=== PATIENT | female | born 1985 | race Caucasian/White ===

== ENCOUNTER 2017-07-05 18:43 | Emergency (ER) | payer MEDICAID ==
[~2017-07-05] VITALS: Ht 180.3 cm; Wt 128.9 kg
[~2017-07-05 18:43] MED LIST: CYCL-1 PO; CYCL-394 PO; FURO-150 PO; NAPR-56 PO
[2017-07-05] MEDS ORDERED: BENZ-16 PO (20:14)
[2017-07-05] MEDS ORDERED: CETI1TAB PO (20:14)
[2017-07-05 20:31] VITALS: BP 144/85
== END 2017-07-05 20:33 | disposition home or self-care (01) ==
LOC: ER 18:45
DX: B34.9 Viral infection, unspecified (principal); G89.29 Other chronic pain; M54.9 Dorsalgia, unspecified; Z98.890 Other specified postprocedural states; Z79.899 Other long term (current) drug therapy
CPT/HCPCS: 99283

== ENCOUNTER 2018-11-18 19:56 | Emergency (ER) | payer MEDICAID ==
[~2018-11-18] VITALS: Ht 182.9 cm; Wt 135.5 kg
[~2018-11-18 19:56] MED LIST changes: +BENZ-16 PO; +CETI1TAB PO
[2018-11-18 20:05] VITALS: BP 183/107
[2018-11-18] MEDS ORDERED: LIDO20SO16 PO (21:30)
== END 2018-11-18 21:42 | disposition home or self-care (01) ==
LOC: ER 19:57
DX: J02.9 Acute pharyngitis, unspecified (principal); G89.29 Other chronic pain; Z98.890 Other specified postprocedural states; Z79.899 Other long term (current) drug therapy
CPT/HCPCS: 99283

== ENCOUNTER 2020-05-22 21:29 | Emergency (ER) | payer MEDICAID ==
[~2020-05-22] VITALS: Ht 177.8 cm; Wt 139.2 kg
[~2020-05-22 21:29] MED LIST changes: +LIDO20SO16 PO; +LIDOcaine 1% W/epiNEPHrine 1:200,000 10ml vial ONE
[2020-05-22 21:40] VITALS: BP 156/105
[2020-05-22] MEDS ORDERED: clindamycin 150mg capsule PO ONE (23:05)
[2020-05-22] MEDS ORDERED: acetaminophen 325mg tablet PO ONE (23:05)
[2020-05-22] MEDS ORDERED: ondansetron 4mg rapidly disintigrating tab PO ONE (23:05)
[2020-05-22] MEDS ORDERED: CLIN300C54 PO (23:08)
== END 2020-05-22 23:43 | disposition home or self-care (01) ==
LOC: ER 21:31
DX: L02.13 Carbuncle of neck (principal); R51.9 Headache, unspecified; G89.29 Other chronic pain; Z98.890 Other specified postprocedural states; Z79.2 Long term (current) use of antibiotics; Z79.899 Other long term (current) drug therapy
CPT/HCPCS: 10060; 10061; 99284

== ENCOUNTER 2024-08-31 14:23 | Emergency (ER) | payer MEDICAID ==
[~2024-08-31] VITALS: Ht 180.3 cm; Wt 104.7 kg
[~2024-08-31 14:23] MED LIST changes: -LIDOcaine 1% W/epiNEPHrine 1:200,000 10ml vial ONE
[2024-08-31 14:35] VITALS: TEMP 97.7
[2024-08-31 15:02] LABS: URINE HCG NEGATIVE (NEG)
[2024-08-31 15:15] LABS: BASOPHILS # (AUTO) 0.1 X10'3 (0-0.2); BASOPHILS % (AUTO) 1.1 % (0-1); EOSINOPHILS # (AUTO) 0.1 X10'3 (0-0.9); EOSINOPHILS % (AUTO) 0.9 % (0-6); HEMATOCRIT 39.4 % (35.0-45.0); HEMOGLOBIN 13.6 g/dl (12.0-16.0); LYMPHOCYTES # (AUTO) 2.6 X10'3 (1.1-4.8); LYMPHOCYTES % (AUTO) 32.5 % (21-51); MEAN CORPUSCULAR HEMOGLOBIN 29.7 PG (27.0-31.0); MEAN CORPUSCULAR HGB CONC 34.5 g/dL (33.0-36.5); MEAN CORPUSCULAR VOLUME 86.1 FL (78-98); MEAN PLATELET VOLUME 8.3 FL (7.4-10.4); MONOCYTES # (AUTO) 0.6 X10'3 (0-0.9); NEUTROPHILS # (AUTO) 4.7 X10'3 (1.8-7.7); NEUTROPHILS % (AUTO) 58.5 % (42-75); PLATELET COUNT 277 X10'3 (140-440); RED BLOOD COUNT 4.57 X10'6 (4.20-5.60); RED CELL DISTRIBUTION WIDTH 13.7 % (11.5-14.5)
[2024-08-31 15:32] LABS: ALANINE AMINOTRANSFERASE 16 U/L (12-78); ALBUMIN 3.7 G/DL (3.4-5.0); ALKALINE PHOSPHATASE 94 IU/L (46-116); ANION GAP 7 (8-16); ASPARTATE AMINO TRANSFERASE 17 U/L (10-37); BILIRUBIN,TOTAL 0.3 MG/DL (0.1-1.0); BLOOD UREA NITROGEN 23 MG/DL (7-18); BUN/CREATININE RATIO 29.9 (10.0-20.0); CALCIUM 8.6 MG/DL (8.5-10.1); CHLORIDE 106 MMOL/L (99-107); CREATININE 0.77 MG/DL (0.40-0.90); GLUCOSE 92 MG/DL (70-104); LIPASE 56 U/L (16-77); POTASSIUM 4.1 MMOL/L (3.5-5.1); SODIUM 140 MMOL/L (135-145); TOTAL CARBON DIOXIDE 26.9 MMOL/L (24-32); TOTAL PROTEIN 7.3 G/DL (6.4-8.2); eCRCL 112 ML/MIN; eGFR 84 ML/MIN
[2024-08-31] MEDS: mag hydrox/Alum hydrox/simeth 30ml oral suspension PO ONE (16:06)
[2024-08-31] MEDS: LIDOcaine 2% Viscous 15ml cup MM PRN (16:06)
[2024-08-31] MEDS ORDERED: OMEP40CA21 PO (16:28)
[2024-08-31 16:43] VITALS: BP 130/91; PULSE 80; RESP 14; O2SAT 98
== END 2024-08-31 16:49 | disposition home or self-care (01) ==
LOC: ER 14:23
DX: K29.00 Acute gastritis without bleeding (principal); Z98.890 Other specified postprocedural states
CPT/HCPCS: 36415; 76700; 80053; 81025; 83690; 85025; 99284

== ENCOUNTER 2025-04-18 14:51 | Emergency (ER) | payer MEDICAID ==
[~2025-04-18] VITALS: Ht 180.3 cm; Wt 120.1 kg
[2025-04-18 14:59] VITALS: BP 161/99; PULSE 86; TEMP 97.3; O2SAT 98
[2025-04-18 17:12] VITALS: RESP 16
[2025-04-18] MEDS: ketorolac trometh 15mg/ml vial 15 MG/ML ML IM ONE (17:12)
[2025-04-18 17:45] LABS: LEUKOCYTE ESTERASE ,URINE TRACE (Neg); NITRITES, URINE NEGATIVE (Neg); OCCULT BLOOD,URINE NEGATIVE (Neg); URINE HCG NEGATIVE (NEG)
[2025-04-18 17:47] LABS: UA COLLECTION TYPE CLN CATCH MIDSTREAM
[2025-04-18 17:52] LABS: SQUAMOUS EPITHELIAL CELL,UR FEW /LPF (FEW)
[2025-04-18] MEDS ORDERED: CEPH500C81 PO (17:59)
--- NOTE | 2025-04-18 18:00 | Physician Documentation ---
History of Present Illness ~ Chief Complaint: Headache Stated Complaint: MULTIPLE MED COMPLAINTS Time Seen by MD: 16:16 Primary Medical Doctor: alla amaya Source: patient Mode of Arrival: POV Exam Limitations: no limitations HPI This with a three day history of headache. She states that the pain is around her temporal area and was unable to describe the pain. She states history of migraines. She has some sensitivity to light. No blurred vision, double vision. No photophobia. Has been taking Tylenol, ibuprofen and Excedrin with minimal relief. She also is concerned that she might have a bladder infection. She states she has been having to void frequently. Has some hesitancy. Denies dysuria. No fevers or chills. No neck or back pain. Nausea, vomiting. No abdominal pain. Was asked, but otherwise denies review of systems. Medication Reconciliation Allergies: Coded Allergies: No Known Allergies (Unverified , 04/18/25) Scheduled Benzonatate (Tessalon Perle), 1 CAP PO Nightly Cephalexin (Cephalexin), 1 CAP PO Q12H Cetirizine Hcl/Pseudoephedrine (Zyrtec-D Tablet), 1 TAB PO DAILY Cyclobenzaprine HCl (Cyclobenzaprine HCl), 10 MG PO BID Furosemide (Lasix), 1 TABLET PO DAILY Lidocaine Hcl (Xylocaine Viscous), 5 ML PO Q2H PRN SORE THROAT Naproxen (Naproxen), 500 MG PO Q12H Scheduled PRN Cyclobenzaprine* (Cyclobenzaprine*), 1 TABLET PO Q8H PRN for muscle spasms Past Medical History Past Medical History: Chronic Back Pain Past Surgical History: Smoking Status: Never smoker Alcohol Use: None Drug Use: none Lives with: Spouse Lives In: Home Review of Systems ROS Review of systems negative except specifically documented in HPI. Physical Exam Vital Signs: RN Vital Signs have been reviewed: Yes, Temperature: 97.3, Source: Temporal, Heart Rate: 86, Respiratory Rate: 16, BP: 161/99, Pulse Oximetry: 98, Weight: 120.100 Oxygen Flow Rate: 0 Pulse Oximetry Reflects: adequate oxygenation Physical Exam General: Awake, alert, oriented. No apparent distress HEENT: Normocephalic. Trachea midline. Pupils equal and reactive to light. EOMI. No nystagmus. Respiratory: Lungs are clear to auscultation bilaterally. No respiratory distress. Chest: Normal shape and size. No accessory muscle use. Cardiovascular: Regular rate and rhythm. S1-S2. No murmur, gallop, rub. Gastrointestinal: Abdomen is soft. Nontender to palpation. Bowel sounds present. Neurologic: Alert and oriented x4. Nonfocal Psychiatric: Normal mood and affect. Skin: Normal color. Warm and dry. Progress Results/Orders Results/Orders Orders - MENA LEBRON NP Cult Urine + [address] (04/18/25 17:53) Completed Orders - MENA LEBRON NP Ketorolac Trometh 15mg/Ml Vial (Toradol (04/18/25 16:40) Hcg, Ur Ql (04/18/25 17:23) Ua W/Microscopic, Cult If Ind (04/18/25 17:35) Medications Received in ER Medications (Trade) Dose Ordered Sig/Jackelin Route PRN Reason Start Time Stop Time Status Last Admin Dose Admin (Toradol injection) 15 mg ONCE ONCE IM 04/18/25 16:40 04/18/25 16:41 DC 04/18/25 17:12 15 MG Vital Signs 04/18/25 04/18/25 14:59 17:12 Temp 97.3 Pulse 86 Resp 16 16 B/P (MAP) 161/99 Pulse Ox 98 O2 Flow Rate 0 Laboratory Tests Test 04/18/25 17:35 Urine Specimen Description Cln catch midstream Urine Color Yellow Urine Clarity Clear Urine pH 7.0 Urine Specific Cadet 1.015 Urine Protein Negative Urine Glucose (UA) Negative Urine Ketones Negative Urine Occult Blood Negative Urine Nitrite Negative Urine Bilirubin Negative Urine Urobilinogen 0.2 Urine Leukocyte Esterase Trace H Urine RBC 0-2 Urine WBC 5-10 H Urine Squamous Epithelial Cells Few Urine Bacteria Few Urine Culture Indicated Indicated Volume Urine Centrifuged 10 ml Urine HCG, Qualitative Negative Urine Comment Microbiology Date/Time Source Procedure Growth Status 04/18/25 17:53 Urine Clean Catch Midstream Urine Culture - Preliminary Culture received. Resulted Medical Decision Making Findings Presents with headache. Presentation of tension type headaches. She was given Toradol and reported improvement in her symptoms. She also complained of urinary symptoms. Her urine had leukocyte esterase, WBCs and few bacteria. She is therefore being treated for a urinary tract infection as well. Encouraged to stay well hydrated. Signs and symptoms were reviewed. Differential Dx:Considerations: Include: CERDA-Cluster, CERDA-Migraine, CERDA- Hypertensive, CERDA-Muscular contraction, CERDA-Post lumbar puncture, Carbon monoxide toxicity, Close head injuyr, CVA, Mass lesion, Meningitis, Sinusitis Departure Time of Disposition: 17:57 Disposition: 01 HOME / SELF CARE / HOMELESS Impression: Primary Impression: UTI (urinary tract infection) Qualified Codes: N30.00 - Acute cystitis without hematuria Additional Impression: Tension headache Condition: Stable Discharge Instructions: Urinary Tract Infection, Adult Referrals: NO PRIMARY CARE PROVIDER (PCP) Prescriptions Cephalexin (Cephalexin) 500 Mg Capsule 1 CAP PO Q12H for 10 Days, #20 CAP Prov: MENA LEBRON NP 04/18/25 Education Educated: Patient Educated regarding: diagnosis, treatment, need for follow up Signature Scribe Signature: No scribe Attestation: The note accurately reflects work and decisions made by me.Mena Lebron - FERNY 04/18/25 21:36 This note was created with the assistance of voice recognition software whereby errors in grammar, syntax, and/or spelling may have occurred despite active proofreading efforts by the author. Please do not hesitate to contact the provider for clarification or for questions regarding the content of this document. MENA LEBRON NP Apr 18, 2025 18:00
== END 2025-04-18 18:05 | disposition home or self-care (01) ==
LOC: ER 14:52
DX: N39.0 Urinary tract infection, site not specified (principal); G44.209 Tension-type headache, unspecified, not intractable
CPT/HCPCS: 81001; 81025; 87088; 96372; 99283; J1885

== ENCOUNTER 2025-05-02 12:42 | Emergency (ER) | payer MEDICAID ==
[~2025-05-02] VITALS: Ht 180.3 cm; Wt 117.8 kg
[2025-05-02 12:46] VITALS: BP 158/86; PULSE 83; RESP 16; O2SAT 97
--- NOTE | 2025-05-02 13:24 | RADIOLOGY REPORT ---
CLINICAL INDICATION: KNEE PAIN TECHNIQUE: DI KNEE, COMP 4 VW MIN Comparison: None FINDINGS/IMPRESSION: : There is no evidence of acute fracture or dislocation. Mild medial compartment osteophyte formation. Minor medial compartment joint space narrowing. This is likely degenerative. No joint effusion.
--- NOTE | 2025-05-02 15:14 | Physician Documentation ---
History of Present Illness ~ Chief Complaint: Knee Pain Stated Complaint: KNEE PAIN Time Seen by MD: 14:07 Primary Medical Doctor: alla amaya [facility] Patient is a 39-year-old female that presents to the emergency department for a new knee brace as hers has fallen apart. Patient reports that she was seen here over a week and a half ago evaluated at that time for left-sided knee pain no fracture was noted on imaging patient has a little bit of residual swelling in her left knee and would like to continue using her knee brace but needs a knee brace. Other symptoms reported at this time. Tetanus witin 5 years: Yes Medication Reconciliation Allergies: Coded Allergies: No Known Allergies (Unverified , 04/18/25) Scheduled Benzonatate (Tessalon Perle), 1 CAP PO Nightly Cetirizine Hcl/Pseudoephedrine (Zyrtec-D Tablet), 1 TAB PO DAILY Cyclobenzaprine HCl (Cyclobenzaprine HCl), 10 MG PO BID Furosemide (Lasix), 1 TABLET PO DAILY Lidocaine Hcl (Xylocaine Viscous), 5 ML PO Q2H PRN SORE THROAT Naproxen (Naproxen), 500 MG PO Q12H Scheduled PRN Cyclobenzaprine* (Cyclobenzaprine*), 1 TABLET PO Q8H PRN for muscle spasms Discontinued Medications Cephalexin (Cephalexin), 1 CAP PO Q12H Discontinued Reason: Auto Discontinued Past Medical History Past Medical History: Chronic Back Pain Past Surgical History: Alcohol Use: None Drug Use: none Lives with: Spouse Lives In: Home Review of Systems ROS As stated above in the HPI, otherwise all systems are reviewed and negative. Physical Exam Vital Signs: Temperature: 98.0, Source: Temporal, Heart Rate: 83, Respiratory Rate: 16, BP: 158/86, Pulse Oximetry: 97, Weight: 117.800 Oxygen Flow Rate: 0 Physical Exam VITALS: Reviewed and as above. GENERAL: Alert, no apparent distress. HEENT: Normocephalic, atraumatic, PERRL, EOMI, dry mucosa, no erythema RESPIRATORY: Lungs clear, normal breath sounds, no respiratory distress. CHEST: No accessory muscle use, no retractions CV: Regular rate, rhythm, no edema, no murmur, No: JVD GI: Soft, non-tender, bowels sounds present, no rebound, guarding, or rigidity BACK: No CVA tenderness, or swelling MUSCULOSKELETAL No deformities, mild edema noted to the left knee during examination, reduced range of motion and tenderness of the left knee during examination. SKIN: Warm and dry, no rash NEURO: Oriented x4, No motor or sensory deficit PSYCH: Normal mood and affect, no agitation Progress Results/Orders Results/Orders Vital Signs 05/02/25 12:46 Temp 98.0 Pulse 83 Resp 16 B/P (MAP) 158/86 Pulse Ox 97 O2 Flow Rate 0 Medical Decision Making Additional information obtaine: other Findings Patient is a 39-year-old female that presents to the emergency department for a new knee brace as hers has fallen apart. Patient reports that she was seen here over a week and a half ago evaluated at that time for left-sided knee pain no fracture was noted on imaging patient has a little bit of residual swelling in her left knee and would like to continue using her knee brace but needs a knee brace. No other symptoms reported at this time. Patient will follow up with physical therapy. Patient follow up with Ortho pedics per her primary care provider. Patient will follow up with the primary care provider. Patient return to the emergency department with any worsening or recurrent symptoms or any additional concerning symptoms that we discussed here today i.e. significantly increased pain swelling redness to the joint inability to ambulate due to pain of the joint fever chills nausea vomiting diarrhea or any other concerning symptoms that we discussed here today. General Diff Dx:Considerations: Include: Abrasion, Contusion, Fracture, Hematoma, Laceration, Malunion, Neurovascular injury, Open fracture, Sprain, Ulcer, Other Knee Diff Dx:Considerations: Include: Abrasion, Arthritis, Contusion, DJD, Fracture-femur, Fracture-fibula, Fracture-patella, Fracture-tibia, Gout, Hematoma, Laceration, Meniscus injury, Neurovascular injury, Open fracture, Rheumatoid arthritis, Septic, Sprain, Sprain-MCL, Sprain-LCL, Sprain-ACL, Sprain-PCL, Other Ankle Diff Dx:Considerations: Include: Abrasion, Arthritis, Contusion, DJD, Fracture-metatarsal, Fracture-fibula, Fracture-tarsal, Fracture-tibia, Gout, Hematoma, Laceration, Malunion, Neurovascular injury, Nonunion, Open fracture, Osteomyelitis, Rheumatoid arthritis, Sprain, Septic, Ulcer, Other Foot Diff Dx:Considerations: Include: Abrasion, Arthritis, Cellulitis, Contusion, Dislocation, DJD, Fracture-metatarsal, Fracture-phalynx, Fracture- tarsal, Gout, Hematoma, Ingrown toenail, Laceration, Malunion, Neurovascular injury, Open fracture, Paronychia, Puncture, Rheumatoid, Sprain, Septic, Subungual hematoma, Ulcer, Other Toe Diff Dx:Considerations: Include: Abrasion, Cellulitis, Contusion, Dislocation, Felon, Fracture, Hematoma, Laceration, Neurovascular injury, Open fracture, Paronychia, Subungual hematoma, Other Departure Disposition: 01 HOME / SELF CARE / HOMELESS Impression: Primary Impression: Knee pain Additional Impression: General medical exam Condition: Stable Discharge Instructions: Acute Knee Pain, Adult, How to Use a Knee Brace Referrals: NO PRIMARY CARE PROVIDER (PCP) Education Educated: Patient Educated regarding: diagnosis, treatment, need for follow up Signature Scribe Signature: A Attestation: Scribed for Aly Reinoso by YELITZA Sprague . 05/02/25 15:15 ALY REINOSO May 02, 2025 15:14
[2025-05-02 15:26] VITALS: TEMP 98
== END 2025-05-02 15:27 | disposition home or self-care (01) ==
LOC: ER 12:43
DX: M25.562 Pain in left knee (principal)
CPT/HCPCS: 29505; 73564; 99284